=== PATIENT | female | born 1975 | race Hispanic/Latino ===

== ENCOUNTER 2020-09-02 06:15 | Day surgery (SDC) | payer BC ==
[2020-08-30 12:23] LABS: BASOPHILS % (AUTO) 0.6 % (0.0-5.0); EOSINOPHILS % (AUTO) 1.2 % (0.0-8.0); HEMATOCRIT 44.8 % (36-48); LYMPHOCYTES % (AUTO) 27.8 % (21.0-51.0); MEAN CORPUSCULAR HEMOGLOBIN 29.7 pg (27.0-33.0); MEAN CORPUSCULAR HGB CONC 32.6 g/dL (32.0-36.0); MEAN CORPUSCULAR VOLUME 91.1 fL (79-99); MONOCYTES % (AUTO) 4.8 % (3.0-13.0); PLATELET COUNT (AUTO) 328 K/uL (130-400); RED BLOOD CELL COUNT(AUTO) 4.92 MIL/uL (4.00-5.50); RED CELL DISTRIBUTION WIDTH 12.9 % (11.0-15.5); WHITE BLOOD COUNT (AUTO) 8.5 K/uL (4.8-10.8)
[2020-09-01 09:45] VITALS: BP 126/78
[2020-09-02] VITALS (23 sets, daily range): BP systolic 112–147; BP diastolic 42–81
[~2020-09-02] VITALS: Ht 162.6 cm; Wt 64.7 kg
[~2020-09-02 06:15] MED LIST: AEC81 PO; ALPR0.5T8 PO
[2020-09-02] MEDS ORDERED: CEFAZOLIN SODIUM 1 GM VIAL ONE (06:38)
[2020-09-02] MEDS: CEFAZOLIN SODIUM 1 GM VIAL IVP ONE ×2 (06:43→08:06)
[2020-09-02] MEDS ORDERED: DEXAMETHASONE SOD PHOSPHATE 10MG/ML 1ML VIAL ONE (07:04)
[2020-09-02] MEDS ORDERED: SUCCINYLCHOLINE CHLORIDE 20 MG/ML 10 ML VIAL ONE (07:04)
[2020-09-02] MEDS ORDERED: LIDOCAINE PF 100MG/5ML (2%) SYRINGE 5ML ONE (07:04)
[2020-09-02] MEDS ORDERED: ONDANSETRON HCL 4 MG/2 ML VIAL ONE (07:07)
[2020-09-02] MEDS ORDERED: MIDAZOLAM HCL 1 MG/ML 2ML VIAL ONE (07:07)
[2020-09-02] MEDS ORDERED: NEOSTIGMINE 5MG/5ML SYR IV ONE (07:07)
[2020-09-02] MEDS ORDERED: GLYCOPYRROLATE 1 MG/5 ML SYRINGE ONE (07:07)
[2020-09-02] MEDS ORDERED: ROCURONIUM 10MG/1ML SYR 10 MG/ML ML ONE (07:07)
[2020-09-02] MEDS ORDERED: PROPOFOL 10 MG/ML 20ML VIAL IV ONE (07:07)
[2020-09-02] MEDS ORDERED: FENTANYL CITRATE PF 50 MCG/1 ML 2ML VIAL ONE ×2 (07:08→08:05)
[2020-09-02] MEDS ORDERED: BUPIVACAINE/PF 0.25% 30ML VIAL IJ ONE (07:59)
[2020-09-02] MEDS ORDERED: LACTATED RINGERS 1000ML 1,000 ML IV SCH (08:00)
[2020-09-02] MEDS ORDERED: CALDOLOR 800MG+NS 250ML 250 ML IV ONE (08:34)
[2020-09-02] MEDS ORDERED: NALOXONE HCL 0.4 MG/1 ML ML ONE (08:50)
[2020-09-02] MEDS ORDERED: METOCLOPRAMIDE 10 MG/2 ML VIAL ONE (08:54)
[2020-09-02] MEDS ORDERED: MEPERIDINE-PF 25 MG/ML SYG ONE (09:25)
[2020-09-02] MEDS ORDERED: CEFAZOLIN SODIUM 1 GM VIAL IVP SCH (10:00)
[2020-09-02] MEDS ORDERED: ACETAMINOPHEN-CODEINE 300/30MG TAB ONE (10:59)
[2020-09-02] MEDS ORDERED: ACETAMINOPHEN-CODEINE 300/30MG TAB PO SCH (11:15)
== END 2020-09-02 14:20 | disposition home or self-care (01) ==
LOC: DAH 06:15
PROVIDERS: ATTEND Obstetrics & Gynecology
DX: N92.0 Excessive and frequent menstruation with regular cycle (principal); Z20.822 Contact with and (suspected) exposure to COVID-19; Z30.2 Encounter for sterilization; F41.9 Anxiety disorder, unspecified; Z86.711 Personal history of pulmonary embolism; Z90.49 Acquired absence of other specified parts of digestive tract; Z98.890 Other specified postprocedural states; Z79.82 Long term (current) use of aspirin; Z79.899 Other long term (current) drug therapy
CPT/HCPCS: 36415; 58563; 58671; 84703; 85025; 86850; 86900; 86901; 87635; A4215 ×2; A4221; A4222; A4223; A4264; A4351; A4355; A4606; A4930; A6260; C1769 ×3; C9803; G0168; J0330; J0690 ×2; J1100; J1741; J2001; J2175; J2250; J2310; J2405; J2704; J2710; J2765; J3010 ×2; J3490 ×2; J7030; J7120